=== PATIENT | female | born 1980 | race Caucasian/White ===

== ENCOUNTER 2018-12-09 09:32 | Outpatient (CLI) | payer BC ==
[2018-12-09 12:45] LABS: Hemoglobin 11.7 g/dL (12.0-16.0); Mean Corpuscular HGB CONC 34.9 g/dL (32.0-36.0); Mean Corpuscular Hemoglobin 33.8 pg (27.0-31.0); Mean Corpuscular Volume 96.7 fL (78.0-98.0); Mean Platelet Volume 6.6 fL (7.4-10.4); Platelet Count 287 thou/uL (130-400); RBC Distribution Width 11.4 % (11.5-14.5); Red Blood Cell (RBC) Count 3.48 mill/uL (4.20-5.40); White Blood Cell (WBC) Count 7.3 thou/uL (4.8-10.8)
[2018-12-09 13:18] LABS: HCG, Total Quant Less than 1.20 mIU/mL (See Ranges)
== END 2018-12-09 09:33 | disposition home or self-care (01) ==
LOC: LABBT 09:32
PROVIDERS: ATTEND Obstetrics & Gynecology
DX: Z01.812 Encounter for preprocedural laboratory examination (principal); R10.2 Pelvic and perineal pain; G89.29 Other chronic pain
CPT/HCPCS: 84443; 84702; 85027; 86850; 86900; 86901

== ENCOUNTER 2019-04-23 09:47 | Day surgery (SDC) | payer BC ==
[2019-04-18 12:20] VITALS: BMI 23.8
[2019-04-18 12:58] LABS: Hemoglobin 12.3 g/dL (12.0-16.0); Mean Corpuscular Hemoglobin 30.4 pg (27.0-31.0); Mean Corpuscular Volume 89.2 fL (78.0-98.0); Mean Platelet Volume 7.7 fL (7.4-10.4); Platelet Count 234 thou/uL (130-400); RBC Distribution Width 10.6 % (11.5-14.5); Red Blood Cell (RBC) Count 4.06 mill/uL (4.20-5.40); White Blood Cell (WBC) Count 5.8 thou/uL (4.8-10.8)
[2019-04-18 13:18] LABS: BHCG - Serum Negative (NEGATIVE); Pregs Control Background? CLEAR/WHITE (CLR/WHITE); Pregs Control Bar Appear? YES (CONTROL BAR)
--- NOTE | 2019-04-23 06:33 | HP ---
REASON FOR ADMISSION: Persistent dysmenorrhea and menorrhagia and left lower quadrant pain. SCHEDULED PROCEDURES: Total laparoscopic hysterectomy, left salpingo-oophorectomy, and right salpingectomy. HISTORY OF PRESENT ILLNESS: Ms. Tubbs is a 39-year-old, G3, P3, status post x3, who is seeing me off and on for about the last decade. She has had persistent dysmenorrhea and menorrhagia and now desires definitive management. Medical management has been unsuccessful. 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 Ultrasound reveals a relatively small uterus with sonographic findings consistent with adenomyosis. No evidence of fibroids with thickened endometrium. PAST MEDICAL HISTORY: Significant for Graves disease and hypothyroidism, status post radiation. PAST SURGICAL HISTORY: Cholecystectomy. ALLERGIES: NONE. MEDICATIONS: Synthroid. Of note, the patient was not on supplementation when she initially saw me back in September and TSH was greater than 50, is now approaching normal limits; she reports her last level was 6. SOCIAL HISTORY: The patient is a past tobacco user. No current tobacco, alcohol, or IV drug abuse. FAMILY HISTORY: Noncontributory. REVIEW OF SYSTEMS: Noncontributory. PHYSICAL EXAMINATION: GENERAL: White female. VITAL SIGNS: 5 feet 9, 160, BMI 24. Blood pressure 110/70, pulse is 93, respirations 18. HEENT: Within normal limits. LUNGS: Clear to auscultation bilaterally. HEART: Regular rate and rhythm. BREASTS: Without masses bilaterally. ABDOMEN: Soft and nontender without rebound or guarding. PELVIC: Vulva without lesions. Vagina without discharge. Cervix is parous. Uterus anteverted, 6-week size, mildly tender on exam with a tender left adnexa. No fullness noted. EXTREMITIES: No clubbing, cyanosis, or edema. IMPRESSION: Dysmenorrhea, menorrhagia, and left lower quadrant and chronic pelvic pains consistent with adenomyosis. PLAN: Total laparoscopic hysterectomy, left salpingo-oophorectomy, and right salpingectomy. We will administer appropriate antibiotic and DVT prophylaxis. The patient was prescribed ibuprofen and [place] at the office at her preoperative visit. Job ID: [id number]
[2019-04-23] MEDS ORDERED: Famotidine/PF 20 mg/2ml Vial ONE (10:17)
[2019-04-23] MEDS ORDERED: CeleCOXIB 100 MG CAP ONE (10:17)
[2019-04-23] MEDS ORDERED: Gabapentin 300 MG CAP ONE (10:17)
[2019-04-23] MEDS ORDERED: PHENYLEPHRINE-NS 100 MCG/ML 10 ML SYRINGE ONE (11:59)
[2019-04-23] MEDS ORDERED: ePHEDrine/0.9% NaCl/PF SYRINGE 50 mg/10 ml ONE (11:59)
[2019-04-23] MEDS ORDERED: PROPOFOL 200 MG/20 ML VIAL ONE (11:59)
[2019-04-23] MEDS ORDERED: Glycopyrrolate 0.2 MG/ML 5 ML SYRINGE ONE (11:59)
[2019-04-23] MEDS ORDERED: Ondansetron PF 4 MG/2 ML Vial ONE (11:59)
[2019-04-23] MEDS ORDERED: Dexamethasone 20 MG/5 ML VIAL ONE (11:59)
[2019-04-23] MEDS ORDERED: Rocuronium Bromide 10 MG/ML (10ML VIAL) ONE (11:59)
[2019-04-23] MEDS ORDERED: Lidocaine 1% PF 5 ML VIAL ONE (11:59)
[2019-04-23] MEDS ORDERED: Midazolam HCl 2 mg/2 ml Vial ONE (12:28)
[2019-04-23] MEDS ORDERED: Fentanyl 100 MCG/2 ML VIAL ONE ×2 (12:28→14:45)
[2019-04-23] MEDS ORDERED: Bupivacaine PF 0.5% 30 ML VIAL ONE (12:30)
[2019-04-23] MEDS ORDERED: Lidocaine 1% w/Epinephrine 1:100K 20 ML VIAL ONE (12:30)
[2019-04-23] MEDS ORDERED: Bisacodyl 10 MG SUPP PR PRN (14:15)
[2019-04-23] MEDS ORDERED: Zolpidem Tartrate 5 MG TAB PO PRN (14:15)
[2019-04-23] MEDS ORDERED: Morphine 4 MG/ML VIAL SLOW IVP PRN (14:15)
[2019-04-23] MEDS ORDERED: Simethicone Chewable 80 MG TAB PO PRN (14:15)
[2019-04-23] MEDS ORDERED: Ondansetron PF 4 MG/2 ML Vial IVP PRN (14:15)
[2019-04-23] MEDS ORDERED: diphenhydrAMINE 25 MG CAP PO PRN (14:15)
[2019-04-23] MEDS ORDERED: Promethazine HCl 25 MG/ML VIAL IM PRN ×2 (14:15→14:40)
[2019-04-23] MEDS ORDERED: HYDROcodone/Acetaminophen 5/325 mg Tablet PO PRN (14:15)
[2019-04-23] MEDS ORDERED: Meperidine HCl/PF 25 MG/ML VIAL SLOW IVP PRN (14:40)
[2019-04-23] MEDS ORDERED: Promethazine HCl 25 MG/ML VIAL SLOW IVP PRN (14:40)
[2019-04-23] MEDS ORDERED: Ondansetron HCl/PF 4 MG/2 ML Vial IVP PRN (14:40)
--- NOTE | 2019-04-23 15:43 | OP ---
DATE OF PROCEDURE: 04/23/2019 PREOPERATIVE DIAGNOSES: Dysmenorrhea, menorrhagia, chronic left lower quadrant pain. POSTOPERATIVE DIAGNOSES: Dysmenorrhea, menorrhagia, chronic left lower quadrant pain. PROCEDURES PERFORMED: Total laparoscopic hysterectomy, right salpingectomy, and left salpingo-oophorectomy. GEOSPATIAL EXTRACTOR ANALYSIS: Helga Meza PA-C ANESTHESIA: General endotracheal. ESTIMATED BLOOD LOSS: Less than 100 mL. COMPLICATIONS: None. MEDICATIONS: 2 g Ancef pre incision. DVT PROPHYLAXIS: SCDs. OPERATIVE FINDINGS: 1. Small anteverted uterus without gross abnormality. 2. Normal-appearing left tube and ovary, status post midsegment salpingectomy. 3. Normal-appearing right tube and ovary, status post midsegment salpingectomy. 4. Hemostasis, clear urine. COUNTS: Correct at the end of the procedure. DISPOSITION: Recovery room in good condition. DESCRIPTION OF PROCEDURE: After obtaining appropriate informed consent, the patient was taken to the operating room, where general endotracheal anesthesia was achieved without difficulty. The patient was prepped and draped in dorsal lithotomy position in [facility]. Rm catheter placed in the bladder. It was drained. Sided speculum was placed in vagina. Cervix was identified and grasped with single-tooth tenaculum, sounded to 7 cm, 4 cm CALEB vaginal cigar roller, and 6 cm obturator on the CALEB were placed without difficulty. Relations Manager changed his clothes and turned attention to abdominal portion of the procedure. 5 mL of Marcaine was injected at base of the umbilicus. A 12 mm skin incision was made at the location of prior midsegment salpingectomy incision. Veress needle was placed in abdominal cavity. Insufflation was carried out with carbon dioxide for a maximum pressure of 15 and volume approximately 3.5 L. A 12 mm trocar was placed, noncutting in the umbilicus and confirmation entry into the peritoneal cavity was noted without trauma to the underlying viscera. Da Arvin robot ports were placed right and left lateral to the epigastric vessels and an 11 mm legal assistant port in the right upper quadrant. The patient is placed in steep Trendelenburg and da Arvin robot was docked. Monopolar scissors were placed in the right hand and bipolar fenestrated forceps in the left. IP was isolated on the patient's left. The distal fallopian tube was coagulated across the mesosalpinx and removed. The IP was coagulated and transected down through the broad, the round, and down on the cardinals to the level of the internal cervical os. Vesicouterine peritoneum was incised sharply anteriorly, dissected off the lower segment cervix and upper vagina, dissecting bladder off the upper vagina as well. Uterine vessels were skeletonized on the left. They were coagulated and transected. Attention was turned to the patient's right. Distal fallopian tube was coagulated at the level of the mesosalpinx and excised and removed from the abdominal cavity. Uteroovarian ligament was coagulated and then transected, the broad and round, and down to the level of cardinal ligaments at the level of the internal cervical os. Further incision and dissection of the vesicouterine peritoneum and vagina off the cervix and upper vagina was carried out. Skeletonization of the uterine vessels on the right was carried out. These were coagulated and transected. Once this was achieved, the vagina was entered posteriorly at 6 o'clock and extended from 6 to 9 and 6 to 3, and then from 3 to 12 and 12 to 9. Specimen was amputated and pulled into the vagina to maintain pneumoperitoneum. Cuff was inspected and small areas of bleeding were rendered hemostatic. It was closed using running continuous 2-0 PDS suture lock running from the patient's right to left and back to right. Good hemostasis was noted. Suction and irrigation carried out. Bladder noted to be well away from the closure. Ureters noted to be well lateral to the surgical field. Tisseel was placed across all surgical pedicles. Good hemostasis noted. The da Arvin instruments were removed. The da Arvin undocked. Trocars were removed x4. Skin was reapproximated x4 using 4-0 Monocryl and Dermabond after reapproximating the fascia at the level of the umbilicus using 0 Vicryl on a UR5 needle. Specimens were removed from the vagina. Vagina inspected and noted to be intact and dry, and the patient was awakened, extubated, and taken to recovery room in good condition. Job ID: [id number]
[2019-04-23] MEDS: Sodium Chloride 0.9% 1,000 ML IV SCH ×2 (16:13→21:55)
[2019-04-23] MEDS: Ketorolac Tromethamine 30 MG/ML VIAL IVP SCH (19:16)
[2019-04-23] MEDS: HYDROcodone/Acetaminophen 5/325 mg Tablet PO PRN (21:57)
[2019-04-24] MEDS: Ketorolac Tromethamine 30 MG/ML VIAL IVP SCH (00:23)
[2019-04-24] MEDS: HYDROcodone/Acetaminophen 5/325 mg Tablet PO PRN (04:14)
[2019-04-24 05:52] LABS: Hemoglobin 10.9 g/dL (12.0-16.0); Mean Corpuscular HGB CONC 34.1 g/dL (32.0-36.0); Mean Corpuscular Hemoglobin 30.9 pg (27.0-31.0); Mean Corpuscular Volume 90.6 fL (78.0-98.0); Mean Platelet Volume 7.5 fL (7.4-10.4); Platelet Count 215 thou/uL (130-400); RBC Distribution Width 10.6 % (11.5-14.5); Red Blood Cell (RBC) Count 3.53 mill/uL (4.20-5.40); White Blood Cell (WBC) Count 12.7 thou/uL (4.8-10.8)
[2019-04-24] MEDS ORDERED: Ibuprofen 800 MG TAB PO SCH (06:00)
[2019-04-24] MEDS ORDERED: Levothyroxine Sodium 88 MCG TAB PO SCH (06:00)
[2019-04-24] MEDS: Sodium Chloride 0.9% 1,000 ML IV SCH (06:40)
[2019-04-24 08:06] VITALS: BP 112/74; TEMP 98.3
--- NOTE | 2019-04-24 08:55 | DIS ---
DATE OF ADMISSION: 04/23/2019 DATE OF DISCHARGE: 04/24/2019 PRIMARY PROCEDURE: Total laparoscopic hysterectomy with left salpingo-oophorectomy and right salpingectomy. ESTIMATED BLOOD LOSS: 100 mL. This morning, the patient is resting comfortably. T-max 98.8, temperature 98.3, pulse 78, respirations 20, and blood pressure 112/74. The patient has voided multiple times and had urine output of 1300 mL prior to Rm removal 4 hours postoperatively. PHYSICAL EXAMINATION: GENERAL: The patient has no complaints. LUNGS: Clear to auscultation bilaterally. HEART: Regular rate and rhythm. ABDOMEN: Soft and nontender. No rebound or guarding. SKIN: Incisions are intact and dry x4. PERINEUM: Dry. EXTREMITIES: Without clubbing, cyanosis or edema. LABORATORY DATA: Hematocrit went from 36.2% to 32.0% postoperatively with platelet count of 215. IMPRESSION: The patient is doing well status post total laparoscopic hysterectomy with left salpingo-oophorectomy and right salpingectomy. PLAN: Discharge home. The patient already has [place] and ibuprofen for discharge analgesia. She will be followed up as scheduled in 2 and 6 weeks at [facility] [place]. Job ID: [id number]
[2019-04-24] MEDS ORDERED: Multivit, Therapeutic 1 TAB PO SCH (09:00)
[2019-04-24] MEDS ORDERED: Magnesium Oxide 400 MG TAB PO SCH (09:00)
== END 2019-04-24 10:16 | disposition home or self-care (01) ==
LOC: SDC 09:47 → EDSTATUS 11:30 → 3SE 14:15 → SDC 04-24 10:16
PROVIDERS: ATTEND Obstetrics & Gynecology
PROC: 0UT14ZZ Resection of Left Ovary, Percutaneous Endoscopic Approach (ICD-10-PCS; principal; 2019-04-24)
PROC: 0UT94ZZ Resection of Uterus, Percutaneous Endoscopic Approach (ICD-10-PCS; principal; 2019-04-24)
PROC: 0UT74ZZ Resection of Bilateral Fallopian Tubes, Percutaneous Endoscopic Approach (ICD-10-PCS; principal; 2019-04-24)
DX: N72 Inflammatory disease of cervix uteri (principal); N80.0 Endometriosis of uterus; N83.12 Corpus luteum cyst of left ovary; N83.8 Other noninflammatory disorders of ovary, fallopian tube and broad ligament; E03.9 Hypothyroidism, unspecified; Z87.891 Personal history of nicotine dependence; Z79.899 Other long term (current) drug therapy
CPT/HCPCS: 36415; 84703; 85027; 86850; 86900; 86901; 88307; J0690; J1100; J1885; J2001; J2250; J2270; J2405; J2704; J3010; S0020; S0028

== ENCOUNTER 2020-07-10 17:35 | Inpatient (IN) | payer OTHER, BC ==
[~2020-07-10 17:35] MED LIST: Iopamidol-370 76% 500 ML 1 ML ONE
[2020-07-10] MEDS ORDERED: CEFAZOLIN 1 GM VIAL ONE (17:42)
[2020-07-10] MEDS ORDERED: Boostrix 0.5 ML (Tdap) VIAL ONE (17:42)
[2020-07-10 17:59] LABS: Mean Corpuscular HGB CONC 34.2 g/dL (32.0-36.0); Mean Corpuscular Hemoglobin 31.7 pg (27.0-31.0); Mean Corpuscular Volume 92.7 fL (78.0-98.0); Mean Platelet Volume 7.5 fL (7.4-10.4); Platelet Count 249 thou/uL (130-400); RBC Distribution Width 10.6 % (11.5-14.5); Red Blood Cell (RBC) Count 3.79 mill/uL (4.20-5.40); White Blood Cell (WBC) Count 14.4 thou/uL (4.8-10.8)
[2020-07-10 18:16] LABS: Band 10 % (5-11); Eosinophils 1 % (0-10); Lymphocytes 24 % (21-51); MDiff Complete? YES; Monocytes 4 % (0-10); Neutrophil 38 % (42-75); Platelet Morphology Comment Appears Adequate; RBC Morphology Normal; Reactive Lymphocytes 23 % (0-10)
[2020-07-10 18:18] LABS: ALT (SGPT) 10 U/L (8-55); AST (SGOT) 13 U/L (5-34); Albumin 3.6 g/dL (3.5-5.0); Alkaline Phosphatase 69 U/L (40-110); Anion Gap 14 mmol/L (10-20); BUN (Urea Nitrogen) 14 mg/dL (7.0-18.7); Bilirubin, Total 0.8 mg/dL (0.2-1.2); Calc. Creatinine Clearance 0 mL/min (70-130); Carbon Dioxide 20 mmol/L (22-29); Chloride 108 mmol/L (98-107); Globulin 2.9 g/dL (2.4-3.5); Glucose 109 mg/dL (70-105); Potassium 3.7 mmol/L (3.5-5.1); Protein, Total 6.5 g/dL (6.0-8.3); Sodium 138 mmol/L (136-145)
[2020-07-10 18:29] LABS: BHCG - Serum Negative (NEGATIVE); Pregs Control Background? CLEAR/WHITE (CLR/WHITE); Pregs Control Bar Appear? YES (CONTROL BAR)
[2020-07-10] MEDS ORDERED: Fentanyl 100 MCG/2 ML VIAL ONE ×3 (19:15→21:13)
[2020-07-10] MEDS ORDERED: Ketamine 50 MG/ML (10ML VIAL) ONE (21:13)
[2020-07-10] MEDS ORDERED: Lidocaine 1% PF 5 ML VIAL ONE (21:58)
[2020-07-11] MEDS ORDERED: hydrALAZINE 20 MG/ML VIAL SLOW IVP PRN (00:48)
[2020-07-11] MEDS ORDERED: Promethazine HCl 25 MG/ML VIAL IM PRN ×3 (00:48→10:00)
[2020-07-11] MEDS ORDERED: Ibuprofen 200 MG TAB PO PRN (00:48)
[2020-07-11] MEDS ORDERED: traMADol HCl 50 MG TAB PO PRN (00:48)
[2020-07-11] MEDS ORDERED: Ondansetron ODT 4 MG TAB PO PRN (00:48)
[2020-07-11] MEDS ORDERED: Dextrose 50% Abboject 50 ML SYRINGE SLOW IVP PRN (00:48)
[2020-07-11] MEDS ORDERED: Dextrose 5% in Water 1,000 ML IV PRN (00:48)
[2020-07-11] MEDS ORDERED: Ondansetron PF 4 MG/2 ML Vial IVP PRN ×2 (00:48→10:00)
[2020-07-11] MEDS ORDERED: Cyclobenzaprine 10 MG TAB PO PRN (00:48)
[2020-07-11 00:53] VITALS: BMI 25.2
[2020-07-11] MEDS: Morphine 2 MG/ML VIAL SLOW IVP PRN ×3 (00:57→05:13)
[2020-07-11] MEDS ORDERED: traMADol HCl 50 MG TAB PO SCH (01:00)
[2020-07-11] MEDS ORDERED: Acetaminophen 500 MG TAB PO SCH (01:00)
[2020-07-11] MEDS: Sodium Chloride 0.9% 1,000 ML IV SCH ×2 (01:07→08:28)
[2020-07-11 04:42] LABS: SARS-CoV-2 PCR by NAA Not Detected (NotDetected)
[2020-07-11] MEDS: traMADol HCl 50 MG TAB PO SCH ×3 (05:14→17:18)
[2020-07-11 05:24] LABS: #Lymphocytes 2.3 thou/uL (1.20-3.40); #Monocytes 0.9 thou/uL (0.11-0.59); #Neutrophils 12.8 thou/uL (1.40-6.50); %Eosinophils 0.1 % (0.0-10.0); %Lymphocytes 14.3 % (21.0-51.0); %Monocytes 5.7 % (0.0-10.0); %Neutrophils 79.9 % (42.0-75.0); Hemoglobin 11.7 g/dL (12.0-16.0); Mean Corpuscular HGB CONC 33.2 g/dL (32.0-36.0); Mean Corpuscular Hemoglobin 30.8 pg (27.0-31.0); Mean Corpuscular Volume 92.8 fL (78.0-98.0); Mean Platelet Volume 7.6 fL (7.4-10.4); Platelet Count 227 thou/uL (130-400); RBC Distribution Width 10.6 % (11.5-14.5); Red Blood Cell (RBC) Count 3.81 mill/uL (4.20-5.40)
[2020-07-11] MEDS: Acetaminophen 500 MG TAB PO SCH ×3 (05:37→17:18)
[2020-07-11 05:48] LABS: Anion Gap 10 mmol/L (10-20); BUN (Urea Nitrogen) 9 mg/dL (7.0-18.7); Calc. Creatinine Clearance 121 mL/min (70-130); Calcium 7.8 mg/dL (7.8-10.44); Carbon Dioxide 22 mmol/L (22-29); Chloride 108 mmol/L (98-107); Glucose 107 mg/dL (70-105); Potassium 3.7 mmol/L (3.5-5.1); Sodium 136 mmol/L (136-145)
[2020-07-11] MEDS ORDERED: Ondansetron HCl/PF 4 MG/2 ML Vial IVP PRN (08:51)
[2020-07-11] MEDS ORDERED: Promethazine HCl 25 MG/ML VIAL SLOW IVP PRN (08:51)
[2020-07-11] MEDS ORDERED: Famotidine 20 MG TAB PO SCH (09:00)
[2020-07-11] MEDS ORDERED: Midazolam HCl 2 mg/2 ml Vial ONE (09:10)
[2020-07-11] MEDS ORDERED: Fentanyl 100 MCG/2 ML VIAL ONE ×3 (09:10→11:27)
[2020-07-11] MEDS ORDERED: Bupivacaine 0.25% HCL 30 ML VIAL ONE (09:31)
[2020-07-11] MEDS ORDERED: Bupivacaine PF 0.5% 30 ML VIAL ONE (09:31)
[2020-07-11] MEDS ORDERED: Zolpidem Tartrate 5 MG TAB PO PRN (10:00)
[2020-07-11] MEDS ORDERED: HYDROcodone/Acetaminophen 5/325 mg Tablet PO PRN ×2 (10:00)
[2020-07-11] MEDS ORDERED: Ropivacaine HCl/PF 250 ML in Premix Bag 1 BAG NERVE BLCK SCH (10:00)
[2020-07-11] MEDS ORDERED: PROPOFOL 200 MG/20 ML VIAL ONE (10:03)
[2020-07-11] MEDS ORDERED: Lidocaine 1% PF 5 ML VIAL ONE (10:03)
[2020-07-11] MEDS ORDERED: PHENYLEPHRINE-NS 100 MCG/ML 10 ML SYRINGE ONE (10:03)
[2020-07-11] MEDS ORDERED: Ondansetron PF 4 MG/2 ML Vial ONE (10:03)
[2020-07-11] MEDS ORDERED: ePHEDrine Sulfate 50 MG/10 ML VIAL ONE (10:03)
[2020-07-11] MEDS ORDERED: Ketorolac Tromethamine 30 MG/ML VIAL ONE (10:03)
[2020-07-11] MEDS ORDERED: Dexamethasone 20 MG/5 ML VIAL ONE (10:03)
[2020-07-11] MEDS ORDERED: Ropivacaine 0.5% HCl/PF (150 MG/30 ML VIAL) ONE (10:03)
[2020-07-11] MEDS ORDERED: Ketorolac Tromethamine 30 MG/ML VIAL IVP SCH (12:00)
[2020-07-11] MEDS ORDERED: Ropivacaine 0.2% 550 ML 550 ML NERVE BLCK SCH (14:15)
[2020-07-11] MEDS ORDERED: CEFAZOLIN 2 GM in Premix Bag 1 BAG IVPB SCH (18:00)
[2020-07-11 19:26] VITALS: TEMP 97.9
[2020-07-11 19:34] VITALS: BP 109/69
== END 2020-07-11 18:55 | disposition home or self-care (01) | DRG 512 ==
LOC: ERS 17:35 → SURG B 23:02
PROVIDERS: ADMIT Surgery; ATTEND Surgery
PROC: 0PSJ04Z Reposition Left Radius with Internal Fixation Device, Open Approach (ICD-10-PCS; principal; 2020-07-11)
PROC: 0PSL04Z Reposition Left Ulna with Internal Fixation Device, Open Approach (ICD-10-PCS; 2020-07-11)
PROC: 0HQEXZZ Repair Left Lower Arm Skin, External Approach (ICD-10-PCS; 2020-07-11)
PROC: 0CQ0XZZ Repair Upper Lip, External Approach (ICD-10-PCS; 2020-07-11)
DX: S52.322A Displaced transverse fracture of shaft of left radius, initial encounter for closed fracture (principal); Z20.822 Contact with and (suspected) exposure to COVID-19; Z23 Encounter for immunization; S52.222A Displaced transverse fracture of shaft of left ulna, initial encounter for closed fracture; V28.5XXA Motorcycle passenger injured in noncollision transport accident in traffic accident, initial encounter; Y92.410 Unspecified street and highway as the place of occurrence of the external cause; Z98.51 Tubal ligation status; Z90.710 Acquired absence of both cervix and uterus; Z79.890 Hormone replacement therapy; E03.9 Hypothyroidism, unspecified; S40.212A Abrasion of left shoulder, initial encounter; S80.812A Abrasion, left lower leg, initial encounter; S80.811A Abrasion, right lower leg, initial encounter; S01.511A Laceration without foreign body of lip, initial encounter
CPT/HCPCS: 12004; 12013; 25535; 36415; 70450; 70486; 71260; 72125; 74177; 76000; 80048; 80053; 84703; 85025; 86850; 86900; 86901; 87635; 90471; 90715; 93005; 96365; 96375; 96376; 99152; 99153; A4306; C1713; G0390; J0690; J1100; J1885; J2250; J2270; J2405; J2704; J2795; J3010; Q9967; S0020; U0003; U0005

== ENCOUNTER 2022-08-10 10:47 | Outpatient (CLI) | payer BC | END 2022-08-10 10:48 | disposition home or self-care (01) | LOC: BICMAMMO 10:47 | PROVIDERS: ATTEND Physician Assistant | DX: Z12.31 Encounter for screening mammogram for malignant neoplasm of breast (principal) | CPT/HCPCS: 77063; 77067 ==